=== PATIENT | male | born 1995 | race Caucasian/White ===

== ENCOUNTER 2019-08-03 08:32 | Emergency (ER) | payer BC ==
[~2019-08-03] VITALS: Ht 172.7 cm; Wt 66.0 kg
[2019-08-03] MEDS ORDERED: TETANUS, DIPHTHERIA, PERTUSSIS VAC/PF 0.5ML (>7YR OLD) IM ONE (10:15)
[2019-08-03] MEDS ORDERED: ACETAMINOPHEN 325MG TABLET PO ONE (10:15)
[2019-08-03] MEDS ORDERED: LIDOCAINE HCL/PF 1% 10 MG/ML 5ML VIAL IJ ONE (10:45)
[2019-08-03 12:54] VITALS: BP 128/86
== END 2019-08-03 13:08 | disposition home or self-care (01) ==
LOC: ER 09:40
DX: S02.2XXA Fracture of nasal bones, initial encounter for closed fracture (principal); S06.899A Other specified intracranial injury with loss of consciousness of unspecified duration, initial encounter; S01.81XA Laceration without foreign body of other part of head, initial encounter; M25.521 Pain in right elbow; V49.3XXA Car occupant (driver) (passenger) injured in unspecified nontraffic accident, initial encounter; Y93.89 Activity, other specified; Y92.89 Other specified places as the place of occurrence of the external cause; Y99.8 Other external cause status
CPT/HCPCS: 12011; 70450; 70486; 90471; 90715; 99284; J3490